=== PATIENT | female | born 2000 | race Caucasian/White ===

== ENCOUNTER → 2023-03-31 11:51 | Outpatient (BNVA) | payer OTHER, SELFPAY | PROVIDERS: PCP Nurse Practitioner Family; Visit Provider Nurse Practitioner Family | DX: E66.9 Obesity, unspecified (principal); G47.00 Insomnia, unspecified; G47.26 Circadian rhythm sleep disorder, shift work type; G47.33 Obstructive sleep apnea (adult) (pediatric) | CPT/HCPCS: 80053; 80061; 84443 ==

== ENCOUNTER 2023-06-09 15:38 | Outpatient (CLI) | payer OTHER, SELFPAY ==
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
== END 2023-06-09 15:39 | disposition home or self-care (01) ==
PROVIDERS: PCP Nurse Practitioner Family; Visit Provider Nurse Practitioner Family
DX: M25.521 Pain in right elbow (principal); V00.148A Other scooter (nonmotorized) accident, initial encounter
CPT/HCPCS: 76882